=== PATIENT | male | born 1950 | race Caucasian/White ===

== ENCOUNTER → 2020-09-18 | Outpatient (CLI) | payer OTHER | LOC: SJCVC 14:03 | PROVIDERS: ATTEND Internal Medicine | DX: Z13.220 Encounter for screening for lipoid disorders (principal); R94.31 Abnormal electrocardiogram [ECG] [EKG]; I48.91 Unspecified atrial fibrillation; I10 Essential (primary) hypertension; M19.90 Unspecified osteoarthritis, unspecified site; E78.00 Pure hypercholesterolemia, unspecified; Z72.89 Other problems related to lifestyle; Z88.5 Allergy status to narcotic agent; Z88.8 Allergy status to other drugs, medicaments and biological substances; Z79.899 Other long term (current) drug therapy; Z79.82 Long term (current) use of aspirin ==

== ENCOUNTER → 2020-09-22 | Outpatient (CLI) | payer OTHER | LOC: SJCVCIMAG 06:58 | PROVIDERS: ATTEND Internal Medicine | DX: I08.2 Rheumatic disorders of both aortic and tricuspid valves (principal); R94.31 Abnormal electrocardiogram [ECG] [EKG]; I48.0 Paroxysmal atrial fibrillation; I10 Essential (primary) hypertension; E78.5 Hyperlipidemia, unspecified; M19.90 Unspecified osteoarthritis, unspecified site; E78.00 Pure hypercholesterolemia, unspecified; Z79.899 Other long term (current) drug therapy; Z72.89 Other problems related to lifestyle; Z87.891 Personal history of nicotine dependence; Z88.5 Allergy status to narcotic agent ==

== ENCOUNTER → 2020-11-12 | Outpatient (CLI) | payer OTHER | LOC: SJCVC 09:05 | PROVIDERS: ATTEND Internal Medicine | DX: R94.31 Abnormal electrocardiogram [ECG] [EKG] (principal); I48.0 Paroxysmal atrial fibrillation; I10 Essential (primary) hypertension; E78.5 Hyperlipidemia, unspecified; M19.90 Unspecified osteoarthritis, unspecified site; Z68.41 Body mass index [BMI] 40.0-44.9, adult; Z90.49 Acquired absence of other specified parts of digestive tract; Z88.8 Allergy status to other drugs, medicaments and biological substances; Z79.899 Other long term (current) drug therapy; Z82.49 Family history of ischemic heart disease and other diseases of the circulatory system ==

== ENCOUNTER → 2020-12-02 | Outpatient (CLI) | payer OTHER ==
[~2020-12-02] VITALS: Ht 182.9 cm; Wt 137.7 kg
[~2020-12-02] MED LIST: ALLOPURINOL 30300 M1 PO; ELIQUIS5 MG PO; FLEXERIL PO; LISINOPRIL20 MG PO; NORVASC10 MG PO; PRAVASTATIN SOD80 MG PO; SINGULAIR 10 MG10 MG PO; TOPROL XL25 MG PO
[2020-12-02 07:30] VITALS: BP 157/88
--- NOTE | 2020-12-02 09:06 | EKG ---
[address] [place] [address] ELECTROCARDIOGRAM REPORT Name: AMANDA RICHARDSON Room #: [facility]#: [id number] Admission: 12/02/20 Attend Phys: Rosalio Saucedo MD, Discharge: Date of : 50 Report #: [id number] [facility] Test Date: 2020-12-02 Test Time: 08:34:12 Pat Name: AMANDA SINGERY Department: Room: Gender: [employer]: AIRAM : 1950 Requested By: Rosalio Saucedo Order Number: [id number] MD: Rosalio Saucedo Measurements Intervals [place] Rate: 66 P: 39 LA: 236 QRS: 4 QRSD: 86 T: 60 QT: 399 QTc: 418 Interpretive Statements Sinus rhythm Prolonged LA interval Low voltage, precordial leads No previous ECG available for comparison Electronically Signed On 12-02-2020 9:05:54 CDT by Rosalio Saucedo [email or web address] <ELECTRONICALLY SIGNED> By: Rosalio Saucedo MD, [facility] 12/02/20 0905 0834 0834 Rosalio Saucedo MD, FACC /EPI
--- NOTE | 2020-12-02 09:27 | TEE ---
[facility] [place] [address] TRANSESOPHAGEAL ECHOCARDIOGRAM Name: AMANDA RICHARDSON Ricci Room #: REG [facility]#: [id number] Admission: 12/02/20 Attend Phys: Rosalio Saucedo MD, Discharge: Date of : 50 Report #: [id number] THIS REPORT FOR: cc: Jie Rubalcava Christine L. DO Santiago, Patrick MD FAC ~ APPROVED REPORT Study performed: 12/02/2020 07:52:36 EXAM: Transesophageal Echocardiogram Patient Location: Out-Patient BSA: 2.54 HR: 111 bpm BP: 183/96 mmHg Rhythm: Atrial Fibrillation Other Information Study Quality: Adequate Indications Afib/CV Procedure After obtaining informed consent, patient underwent transesophageal echo in the [employer]. Type of Sedation : Conscious Sedation Sedation was administered by Suzanna Ortiz RN. Sedation start time: 757 Case end Time: 800 Sedation was achieved intravenously with: Versed (7.5) Fentanyl (75) Transesophageal probe was inserted and advanced into esophagus without difficulty by Rosalio Saucedo MD [facility]. Echo enhancement indication: R/O Septal defect. Echo enhancement agent administered: Agitated Saline The SOUMYA was performed without complications. Synchronized Cardioversion attempted: Successful Synchronized Cardioversion acheived with 75J, 120 Joules after 2 attempt(s). Rhythm following Synchronized Cardioversion: Normal Sinus Rhythm Throughout the procedure, the blood pressure, pulse oximetry, cardiac rhythm, and rate were monitored. The patient tolerated the procedure without adverse effects. Recovery from conscious sedation was uneventful and vital signs were [facility] [address] [place] [address] TRANSESOPHAGEAL ECHOCARDIOGRAM Name: AMANDA RICHARDSON Room #: REG [facility].#: [id number] Admission: 12/02/20 Attend Phys: Rosalio Saucedo, Discharge: Date of : 50 Report #: [id number] stable. Left Ventricle The left ventricle is normal size. There is normal LV segmental wall motion. There is normal left ventricular wall thickness. Left ventricular systolic function is normal. LVEF is 60%. Right Ventricle The right ventricle is normal size. The right ventricular systolic function is normal. Atria Left atrium is dilated. No thrombus is visualized in the left atrium or appendage. No shunting noted with contrast bubble injection. The right atrium size is normal. Aortic Valve Aortic valve is trileaflet. Mildly calcified. No aortic regurgitation is present. There is no aortic valvular stenosis. Mitral Valve The mitral valve is normal in structure. Mild mitral regurgitation. Tricuspid Valve The tricuspid valve is normal in structure. Trace tricuspid regurgitation. Great Vessels The aortic root is normal in size. Pericardium There is no pericardial effusion. <Conclusion> Atrial fibrillation at baseline Consent was obtained Timeout was performed Patient received a total of 7.5 mg of Versed and 75 mg of fentanyl After appropriate sedation esophageal probe was advanced without difficulty Left atrial appendage, no clot detected Mild left atrial enlargement Normal aortic valve structure and function Trace mitral valve insufficiency [facility] [address] [place] [address] TRANSESOPHAGEAL ECHOCARDIOGRAM Name: AMANDA RICHARDSON Room #: REG [facility]#: [id number] Admission: 12/02/20 Attend Phys: Rosalio Saucedo, Discharge: Date of : 50 Report #: [id number] Trace tricuspid valve insufficiency. Normal left ventricle size/wall thickness ejection fraction 60% No pericardial effusion No evidence of ASD/VSD by color flow/bubble study Patient was a successfully cardioverted to sinus rhythm after 70-120 J in a biphasic mode Patient tolerated procedure well Twelve-lead ECG pending <ELECTRONICALLY SIGNED> By: Rosalio Saucedo MD, FACC 12/02/20926 6 6 Rosalio Saucedo MD, FACC /INF
== END | disposition home or self-care (01) ==
LOC: CATH 06:34
PROVIDERS: ATTEND Internal Medicine
DX: I48.91 Unspecified atrial fibrillation (principal); I08.1 Rheumatic disorders of both mitral and tricuspid valves; I10 Essential (primary) hypertension; E78.00 Pure hypercholesterolemia, unspecified; M10.9 Gout, unspecified; G47.30 Sleep apnea, unspecified; E66.09 Other obesity due to excess calories; Z98.890 Other specified postprocedural states; Z79.899 Other long term (current) drug therapy; Z96.641 Presence of right artificial hip joint; Z88.2 Allergy status to sulfonamides; Z88.8 Allergy status to other drugs, medicaments and biological substances

== ENCOUNTER → 2021-03-11 | Outpatient (CLI) | payer OTHER | LOC: SJCVC 08:48 | PROVIDERS: ATTEND Internal Medicine | DX: R94.31 Abnormal electrocardiogram [ECG] [EKG] (principal); I44.0 Atrioventricular block, first degree; I48.0 Paroxysmal atrial fibrillation; Z13.220 Encounter for screening for lipoid disorders; I10 Essential (primary) hypertension; Z72.89 Other problems related to lifestyle; Z88.8 Allergy status to other drugs, medicaments and biological substances; Z88.5 Allergy status to narcotic agent ==